=== PATIENT | male | born 1960 | race Caucasian/White ===

== ENCOUNTER 2018-07-10 12:20 | Outpatient (REF) | payer OTHER, SELFPAY ==
[2018-07-10 20:36] LABS: Cholesterol 253 mg/dL (50-200); HDL Cholesterol 66 mg/dL (40-60); LDL CHOLESTEROL 148 mg/dL (<100); Triglyceride 295 mg/dL (30-150)
[2018-07-10 21:00] LABS: Creatine Kinase 195 U/L (39-308)
== END 2018-07-10 12:40 ==
LOC: NCHCN 12:20
PROVIDERS: PCP Specialist/Technologist Athletic Trainer; Visit Provider Specialist/Technologist Athletic Trainer
DX: E78.5 Hyperlipidemia, unspecified (principal)
CPT/HCPCS: 80061; 82550; 83721